=== PATIENT | male | born 1985 ===

== ENCOUNTER 2017-02-10 13:05 | Emergency (ER) | payer MEDICAID ==
[2017-02-10 13:05] VITALS: BMI 48.4
[2017-02-10 13:23] VITALS: BP 148/114; PULSE 108; TEMP 98.4; O2SAT 97
[2017-02-10] MEDS ORDERED: Sodium Chloride 0.9% 1,000 ML IV STA (13:58)
--- NOTE | 2017-02-10 14:06 | ED PDOC ---
HPI: Chest Pain Time Seen by Provider: 02/10/17 13:24 Chief Complaint (Nursing): Shortness Of Breath Chief Complaint (Provider): Chest pain History Per: Patient History/Exam Limitations: no limitations Onset/Duration Of Symptoms: Days Current Symptoms Are (Timing): Still Present Additional Complaint(s): Pain to the left chest. Ongoing for several days. Here few days ago and given meds. Tried rx and not helping. No dyspnea, weakness, dizziness, injury. No back pain. No abd pain. No etoh. No palpitations. Hurts to touch and movement. No numbness, tingles, arm pain. Past Medical History Reviewed: Nursing Documentation, Vital Signs Vital Signs: Last Vital Signs Temp 98.4 F 02/10/17 13:10 Pulse 108 H 02/10/17 13:10 Resp 16 02/10/17 13:10 BP 148/114 H 02/10/17 13:10 Pulse Ox 97 02/10/17 14:05 - Medical History PMH: Asthma - Surgical History Surgical History: No Surg Hx - Family History Family History: States: Unknown Family Hx - Living Arrangements Living Arrangements: With Family - Social History Drugs: Cannabis - Immunization History Hx Tetanus Toxoid Vaccination: No Hx Influenza Vaccination: No Hx Pneumococcal Vaccination: No - Home Medications Home Medications: Ambulatory Orders Medication Instructions Recorded Azithromycin [Zithromax] 250 mg PO DAILY #6 tab 10/16/16 Cyclobenzaprine [Cyclobenzaprine 10 mg PO Q8 PRN #30 tab 10/16/16 HCl] Methylprednisolone [Medrol Dose 4 mg PO DAILY #21 mg 10/16/16 Pack (21 tabs)] Naproxen [Naprosyn] 500 mg PO BID PRN #30 tab 10/16/16 No Other Home Meds 1 .8 .ROUTE . 10/16/16 Naproxen [Naprosyn] 500 mg PO Q12H #20 tab 12/08/16 Cyclobenzaprine [Cyclobenzaprine 10 mg PO BID #15 tab 02/06/17 HCl] Ketorolac Tromethamine [Toradol] 10 mg PO Q8 #12 tab 02/06/17 Ibuprofen [Motrin] 600 mg PO TID 7 Days 02/10/17 - Allergies Allergies/Adverse Reactions: Allergies Allergy/AdvReac Type Severity Reaction Status Date / Time No Known Allergies Allergy Verified 02/10/17 13:10 Review of Systems ROS Statement: Except As Marked, All Systems Reviewed And Found Negative Cardiovascular: Positive for: Chest Pain Physical Exam - Reviewed Nursing Documentation Reviewed: Yes - Physical Exam Appears: Positive for: Non-toxic, No Acute Distress Head Exam: Positive for: ATRAUMATIC, NORMAL INSPECTION, NORMOCEPHALIC Skin: Positive for: Normal Color, Warm, DRY Eye Exam: Positive for: EOMI, Normal appearance, PERRL ENT: Positive for: Normal ENT Inspection Neck: Positive for: Normal, Painless ROM Cardiovascular/Chest: Positive for: Regular Rate, Rhythm. Negative for: Chest Non Tender (tender left chest and lateral left chest), Edema Respiratory: Positive for: CNT, Normal Breath Sounds Gastrointestinal/Abdominal: Positive for: Normal Exam, Bowel Sounds, Soft. Negative for: Tenderness Back: Positive for: Normal Inspection. Negative for: L CVA Tenderness, R CVA Tenderness Extremity: Positive for: Normal ROM. Negative for: Tenderness, Pedal Edema Neurologic/Psych: Positive for: Alert, Oriented - Laboratory Results Result Diagrams: 02/10/17 14:10 Interpretation Of Abn Labs: elevated wbc - ECG ECG: Positive for: Interpreted By Me, Viewed By Me ECG Rhythm: Positive for: Normal QRS, Normal ST Segment, Sinus Rhythm O2 Sat by Pulse Oximetry: 97 Pulse Ox Interpretation: Normal - Radiology X-Ray: Read By Radiologist X-Ray Interpretation: No Acute Disease - Progress ED Course And Treament: 1508: Stable. Fu with pcp. AAOx3. Pain controlled. Disposition - Clinical Impression Clinical Impression: Chest pain - Patient ED Disposition Is Patient to be Admitted: No Counseled Patient/Family Regarding: Studies Performed, Diagnosis, Need For Followup, Rx Given - Disposition Referrals: [facility] [Outside] - 02/11/17 Disposition: Routine/Home Disposition Time: 15:08 Condition: STABLE Additional Instructions: Return if not better in 3 days. Prescriptions: Ibuprofen [Motrin] 600 mg PO TID 7 Days Instructions: Chest Wall Pain (ED) Forms: [facility] ED School/Work Excuse
[2017-02-10 14:19] LABS: BASO # 0.1 K/uL (0.0-0.2); BASO % 0.6 % (0.0-2.0); EOS # 0.1 K/uL (0.0-0.7); EOS % 1.1 % (0.0-4.0); HEMATOCRIT 47.1 % (35.0-51.0); LYMPH # 2.3 K/uL (1.0-4.3); LYMPH % 16.2 % (20.0-40.0); MEAN CORPUSCULAR HEMOGLOBIN 29.7 pg (27.0-31.0); MEAN CORPUSCULAR HGB CONC 33.4 g/dL (33.0-37.0); MEAN PLATELET VOLUME 7.2 fl (7.2-11.7); MONO # 1.2 K/uL (0.0-0.8); MONO % 8.8 % (0.0-10.0); NEUT # 10.3 K/uL (1.8-7.0); NEUT % 73.3 % (50.0-75.0); RED CELL DISTRIBUTION WIDTH 13.7 % (11.5-14.5); WHITE BLOOD COUNT 14.1 K/uL (4.8-10.8)
[2017-02-10 14:32] LABS: BLOOD UREA NITROGEN 16 mg/dl (9-20); CALCIUM 9.5 mg/dL (8.4-10.2); CARBON DIOXIDE 24 mmol/L (22-30); CHLORIDE 104 mmol/L (98-107); GFR AFRICAN-AMERICAN > 60; GLUCOSE,RANDOM 122 mg/dL (75-110); POTASSIUM 4.3 MMOL/L (3.6-5.0); SODIUM 141 mmol/l (132-148)
--- NOTE | 2017-02-10 14:42 | RAD ---
HISTORY: Dyspnea COMPARISON: 10/16/2016. TECHNIQUE: Chest PA and lateral FINDINGS: LUNGS: The lungs are well inflated and clear. PLEURA: No significant pleural effusion identified. No pneumothorax apparent. CARDIOVASCULAR: Normal. OSSEOUS STRUCTURES: No significant abnormalities. VISUALIZED UPPER ABDOMEN: Normal. OTHER FINDINGS: None. IMPRESSION: No active pulmonary disease.
[2017-02-10 15:06] VITALS: RESP 20
--- NOTE | 2017-02-11 08:34 | CARD ---
APPROVED REPORT EKG Measurement Heart [id number] <Conclusion> Normal sinus rhythm Normal ECG
== END 2017-02-10 15:41 | disposition home or self-care (01) ==
LOC: H.ER 13:05
DX: R07.89 Other chest pain (principal); J45.909 Unspecified asthma, uncomplicated; R06.00 Dyspnea, unspecified